=== PATIENT | female | born 1960 | race African-American/Black ===

== ENCOUNTER 2017-07-23 16:10 | Emergency (ER) | payer MEDICARE, OTHER ==
[~2017-07-23] VITALS: Ht 170.2 cm; Wt 77.0 kg
[~2017-07-23 16:10] MED LIST: ALPR-624 PO; ESCI10TA PO; GABA-330 PO; HYDR-3972 PO
[2017-07-23 16:29] VITALS: BP 167/92
[2017-07-23] MEDS ORDERED: acetaminophen 325mg tablet PO ONE (16:55)
[2017-07-23] MEDS ORDERED: ketorolac trometh inj. 60 MG/2 ML VIAL IM ONE (16:55)
[2017-07-23] MEDS ORDERED: IBUP-1984 PO (18:21)
== END 2017-07-23 18:35 | disposition home or self-care (01) ==
LOC: ER 16:12
DX: R51 Headache (principal); I10 Essential (primary) hypertension; G89.29 Other chronic pain
CPT/HCPCS: 36415; 70450; 71045; 85651; 96372; 99285; J1885

== ENCOUNTER 2018-05-24 19:06 | Emergency (ER) | payer MEDICARE, OTHER ==
[~2018-05-24] VITALS: Ht 170.2 cm; Wt 74.0 kg
[2018-05-24 19:23] VITALS: BP 171/64
[2018-05-24] MEDS ORDERED: ketorolac tromethamine 15mg/ml inj. IM ONE (22:20)
== END 2018-05-24 23:14 | disposition home or self-care (01) ==
LOC: ER 19:06
DX: S00.83XA Contusion of other part of head, initial encounter (principal); I10 Essential (primary) hypertension; G89.29 Other chronic pain; R42 Dizziness and giddiness; R11.0 Nausea; V48.6XXA Car passenger injured in noncollision transport accident in traffic accident, initial encounter; Y93.89 Activity, other specified; Y92.410 Unspecified street and highway as the place of occurrence of the external cause; Y99.8 Other external cause status
CPT/HCPCS: 70450; 96372; 99284; J1885

== ENCOUNTER 2018-05-28 14:44 | Emergency (ER) | payer MEDICARE, OTHER ==
[~2018-05-28] VITALS: Ht 170.2 cm; Wt 74.5 kg
[2018-05-28] MEDS ORDERED: dexamethasone sod phosphate 10mg/ml inj IV STA (15:11)
[2018-05-28] MEDS ORDERED: ketorolac trometh. 30mg/ml inj. IV ONE (15:15)
[2018-05-28] MEDS ORDERED: normal saline 1000ML IV soln IVB ONE (15:15)
[2018-05-28] MEDS ORDERED: LORazepam 2 mg/ml vial IV ONE (15:15)
[2018-05-28] MEDS ORDERED: proCHLORperazine 10 MG/2 ml inj IV ONE (15:15)
[2018-05-28 16:43] VITALS: BP 150/85
== END 2018-05-28 16:45 | disposition home or self-care (01) ==
LOC: ER 14:44
DX: F07.81 Postconcussional syndrome (principal); R42 Dizziness and giddiness; G43.909 Migraine, unspecified, not intractable, without status migrainosus; I10 Essential (primary) hypertension; G89.29 Other chronic pain; Z98.890 Other specified postprocedural states; Z79.899 Other long term (current) drug therapy
CPT/HCPCS: 96361; 96374; 96375; 99284; J0780; J1100; J1885; J2060; J7030

== ENCOUNTER 2018-06-20 13:15 | Emergency (ER) | payer MEDICARE, OTHER ==
[~2018-06-20] VITALS: Ht 170.2 cm; Wt 75.0 kg
[2018-06-20] MEDS ORDERED: proCHLORperazine 10 MG/2 ml inj IM ONE (18:10)
[2018-06-20 19:26] VITALS: BP 144/84
== END 2018-06-20 19:27 | disposition home or self-care (01) ==
LOC: ER 13:16
DX: G43.909 Migraine, unspecified, not intractable, without status migrainosus (principal); I10 Essential (primary) hypertension; G89.29 Other chronic pain; Z79.899 Other long term (current) drug therapy
CPT/HCPCS: 96372; 99283; J0780

== ENCOUNTER 2019-01-27 19:23 | Emergency (ER) | payer MEDICARE, OTHER ==
[~2019-01-27] VITALS: Ht 170.2 cm; Wt 75.0 kg
[2019-01-27] MEDS ORDERED: ondansetron/PF 4mg/2ml inj IV ONE (20:30)
[2019-01-27] MEDS ORDERED: normal saline 1000ML IV soln IVB ONE (20:30)
[2019-01-27] MEDS ORDERED: morphine 4 MG/ML inj SYRINge IV PRN (20:30)
[2019-01-27 20:35] LABS: URINE HCG NEGATIVE (NEG)
[2019-01-27 20:37] LABS: CLARITY,URINE CLEAR (Clear); COLOR,URINE YELLOW (Yellow); GLUCOSE, URINE NEGATIVE (Neg); KETONES,URINE NEGATIVE (Neg); LEUKOCYTE ESTERASE ,URINE NEGATIVE (Neg); NITRITES, URINE NEGATIVE (Neg); OCCULT BLOOD,URINE NEGATIVE (Neg); PROTEIN,URINE TRACE mg/dl (Neg); UROBILINOGEN,URINE 0.2 E.U/dL (0.2-1.0)
[2019-01-27 20:42] LABS: UA COLLECTION TYPE CLN CATCH MIDSTREAM
[2019-01-27 20:42] LABS: EOSINOPHILS # (AUTO) 0.1 X10'3 (0-0.9); EOSINOPHILS % (AUTO) 1.1 % (0-6); MEAN CORPUSCULAR HEMOGLOBIN 30.4 PG (27.0-31.0); MEAN CORPUSCULAR HGB CONC 33.5 g/dL (33.0-36.5); MEAN CORPUSCULAR VOLUME 90.7 FL (78-98); MONOCYTES # (AUTO) 0.3 X10'3 (0-0.9); WHITE BLOOD COUNT 8.5 X10'3 (4.5-11.0)
[2019-01-27 20:43] LABS: BACTERIA,URINE FEW /HPF (Neg); RBC,URINE NONE SEEN /HPF (0-2); SQUAMOUS EPITHELIAL CELL,UR MODERATE /LPF (FEW); WBC,URINE 0-4 /HPF (0-4)
[2019-01-27 20:43] LABS: BASOPHILS % (AUTO) 0.2 % (0-1); HEMOGLOBIN 15.7 g/dl (12.0-16.0); LYMPHOCYTES # (AUTO) 0.7 X10'3 (1.1-4.8); LYMPHOCYTES % (AUTO) 8.4 % (21-51); MONOCYTES % (AUTO) 3.2 % (2-12); NEUTROPHILS # (AUTO) 7.4 X10'3 (1.8-7.7); NEUTROPHILS % (AUTO) 87.1 % (42-75); RED BLOOD COUNT 5.18 X10'6 (4.20-5.60); RED CELL DISTRIBUTION WIDTH 14.1 % (11.5-14.5)
[2019-01-27 20:54] LABS: ALANINE AMINOTRANSFERASE 31 U/L (12-78); ALBUMIN 4.2 G/DL (3.4-5.0); ALBUMIN/GLOBULIN RATIO 1.1 (1.1-1.5); ALKALINE PHOSPHATASE 91 IU/L (46-116); ANION GAP 11 (8-16); ASPARTATE AMINO TRANSFERASE 22 U/L (10-37); BILIRUBIN,TOTAL 0.5 MG/DL (0.1-1.0); BLOOD UREA NITROGEN 12 MG/DL (7-18); BUN/CREATININE RATIO 11.7 (6.6-38.0); CALCIUM 9.6 MG/DL (8.5-10.1); CHLORIDE 104 MMOL/L (99-107); CREATININE 1.03 MG/DL (0.40-0.90); GLUCOSE 144 MG/DL (70-104); LIPASE 219 U/L (73-393); SODIUM 143 MMOL/L (135-145); TOTAL CARBON DIOXIDE 28.3 MMOL/L (24-32); TOTAL PROTEIN 8.1 G/DL (6.4-8.2); eGFR 66 ML/MIN
[2019-01-27 20:56] LABS: POTASSIUM 4.3 MMOL/L (3.5-5.1)
[2019-01-27 21:00] VITALS: BP 154/74
[2019-01-27 21:12] LABS: MEAN PLATELET VOLUME 10.8 FL (7.4-10.4); PLATELET COUNT 148 X10'3 (140-440)
[2019-01-27 21:13] LABS: LARGE PLATELETS MODERATE; PLATELET ESTIMATE NORMAL
[2019-01-27] MEDS ORDERED: ONDA4TAB12 PO (21:32)
== END 2019-01-27 22:03 | disposition home or self-care (01) ==
LOC: ER 19:34
DX: K52.9 Noninfective gastroenteritis and colitis, unspecified (principal); G43.909 Migraine, unspecified, not intractable, without status migrainosus; I10 Essential (primary) hypertension; G89.29 Other chronic pain; F41.9 Anxiety disorder, unspecified; Z98.890 Other specified postprocedural states; Z79.899 Other long term (current) drug therapy
CPT/HCPCS: 36415; 74176; 80053; 81001; 81025; 83690; 85025; 85610; 96374; 96375; 99284; J2270; J2405; J7030

== ENCOUNTER 2019-10-10 16:35 | Emergency (ER) | payer MEDICARE, OTHER ==
[~2019-10-10] VITALS: Ht 170.2 cm; Wt 72.0 kg
[~2019-10-10 16:35] MED LIST changes: +ONDA4TAB12 PO
[2019-10-10] MEDS ORDERED: CYCL-1 PO (20:21)
[2019-10-10 20:43] VITALS: BP 155/81
== END 2019-10-10 20:46 | disposition home or self-care (01) ==
LOC: ER 16:36
DX: M54.2 Cervicalgia (principal); M54.6 Pain in thoracic spine; I10 Essential (primary) hypertension; G89.29 Other chronic pain; F41.9 Anxiety disorder, unspecified; Z98.890 Other specified postprocedural states; Z79.899 Other long term (current) drug therapy; V89.2XXA Person injured in unspecified motor-vehicle accident, traffic, initial encounter; Y93.89 Activity, other specified; Y92.410 Unspecified street and highway as the place of occurrence of the external cause; Y99.8 Other external cause status
CPT/HCPCS: 70450; 72125; 72128; 99285

== ENCOUNTER 2020-01-16 15:35 | Emergency (ER) | payer MEDICARE, OTHER ==
[~2020-01-16] VITALS: Ht 170.2 cm; Wt 75.9 kg
[~2020-01-16 15:35] MED LIST changes: +CYCL-1 PO
[2020-01-16 15:47] VITALS: BP 146/73
== END 2020-01-16 17:18 | disposition home or self-care (01) ==
LOC: ER 15:36
DX: F41.0 Panic disorder [episodic paroxysmal anxiety] (principal); G43.909 Migraine, unspecified, not intractable, without status migrainosus; I10 Essential (primary) hypertension; G89.29 Other chronic pain; Z98.890 Other specified postprocedural states; Z79.899 Other long term (current) drug therapy
CPT/HCPCS: 99284

== ENCOUNTER 2020-09-01 20:23 | Emergency (ER) | payer MEDICARE, OTHER ==
[~2020-09-01] VITALS: Ht 170.2 cm; Wt 72.7 kg
[2020-09-01 20:34] VITALS: BP 153/64
[2020-09-01] MEDS ORDERED: BENZ-16 PO (22:26)
[2020-09-01] MEDS ORDERED: AMOX-422 PO (22:26)
[2020-09-01] MEDS ORDERED: ALBU8HFA PO (22:26)
[2020-09-01] MEDS ORDERED: benzonatate 100mg capsule PO ONE (22:30)
[2020-09-01] MEDS ORDERED: amox tr/potassium clavulanate 875/125mg TAB PO ONE (22:30)
[2020-09-01] MEDS ORDERED: guaiFENesin/codeine phos 10ml UD oral syrup PO ONE (22:35)
== END 2020-09-01 23:03 | disposition home or self-care (01) ==
LOC: ER 20:24
DX: J20.9 Acute bronchitis, unspecified (principal); R05 Cough; G43.909 Migraine, unspecified, not intractable, without status migrainosus; I10 Essential (primary) hypertension; G89.29 Other chronic pain; F41.9 Anxiety disorder, unspecified; Z98.890 Other specified postprocedural states; Z79.2 Long term (current) use of antibiotics; Z79.899 Other long term (current) drug therapy
CPT/HCPCS: 99284

== ENCOUNTER → 2020-12-09 | Emergency (ER) | payer MEDICARE, OTHER ==
[~2020-12-09] VITALS: Ht 170.2 cm; Wt 80.9 kg
[~2020-12-09] MED LIST changes: +HYDROcodone/acetaminophen 10/325mg tab PO STA; +cyclobenzaprine 10mg tablet PO ONE; +orphenadrine citrate 60mg/2ml inj. IM ONE
--- NOTE | 2020-12-10 01:29 | NUR ---
met up with patient outside, she is continued pain, laying on decking. Will adm pain med for her
[2020-12-10 02:05] VITALS: BP 196/83
== END | disposition home or self-care (01) ==
LOC: ER 22:44
DX: G89.29 Other chronic pain (principal); M54.2 Cervicalgia; M54.9 Dorsalgia, unspecified; G43.909 Migraine, unspecified, not intractable, without status migrainosus; I10 Essential (primary) hypertension; Z79.899 Other long term (current) drug therapy
CPT/HCPCS: 93005; 96372; 99283; J2360

== ENCOUNTER 2022-01-30 17:26 | Emergency (ER) | payer OTHER, MEDICARE ==
[~2022-01-30] VITALS: Ht 157.5 cm; Wt 77.7 kg
[~2022-01-30 17:26] MED LIST changes: -HYDROcodone/acetaminophen 10/325mg tab PO STA; -cyclobenzaprine 10mg tablet PO ONE; -orphenadrine citrate 60mg/2ml inj. IM ONE
--- NOTE | 2022-01-30 18:47 | NUR ---
DR HAMEED AWARE OF PT. HE STATES NOT TO ORDER A HEAD OR NECK CT YET.
--- NOTE | 2022-01-30 20:06 | NUR ---
[facility]. CASE REPORT NUMBER IS [id number]
[2022-01-30] MEDS ORDERED: cyclobenzaprine 10mg tablet PO ONE (20:50)
[2022-01-30] MEDS ORDERED: ketorolac trometh. 30mg/ml inj. IM ONE (20:50)
[2022-01-30 23:52] VITALS: BP 128/58
== END 2022-01-30 23:54 | disposition home or self-care (01) ==
LOC: ER 17:27
DX: R51.9 Headache, unspecified (principal); M54.2 Cervicalgia; M54.9 Dorsalgia, unspecified; V98.8XXA Other specified transport accidents, initial encounter; Y93.89 Activity, other specified; Y92.89 Other specified places as the place of occurrence of the external cause; Y99.8 Other external cause status; G43.909 Migraine, unspecified, not intractable, without status migrainosus; I10 Essential (primary) hypertension; G89.29 Other chronic pain; F41.9 Anxiety disorder, unspecified; Z79.899 Other long term (current) drug therapy
CPT/HCPCS: 70450; 96372; 99284; J1885; 99283

== ENCOUNTER 2023-03-08 19:16 | Emergency (ER) | payer MEDICARE, OTHER ==
[~2023-03-08] VITALS: Ht 170.2 cm; Wt 76.8 kg
[2023-03-08 19:17] VITALS: TEMP 98.4
[2023-03-08 20:09] LABS: BASOPHILS % (AUTO) 0.4 % (0-1); EOSINOPHILS # (AUTO) 0.1 X10'3 (0-0.9); HEMATOCRIT 38.2 % (35.0-45.0); HEMOGLOBIN 12.8 g/dl (12.0-16.0); LYMPHOCYTES # (AUTO) 1.1 X10'3 (1.1-4.8); LYMPHOCYTES % (AUTO) 24.3 % (21-51); MEAN CORPUSCULAR HEMOGLOBIN 30.4 PG (27.0-31.0); MEAN CORPUSCULAR HGB CONC 33.4 g/dL (33.0-36.5); MEAN CORPUSCULAR VOLUME 91.1 FL (78-98); MEAN PLATELET VOLUME 10.4 FL (7.4-10.4); MONOCYTES # (AUTO) 0.3 X10'3 (0-0.9); MONOCYTES % (AUTO) 6.2 % (2-12); NEUTROPHILS # (AUTO) 3.1 X10'3 (1.8-7.7); NEUTROPHILS % (AUTO) 67.1 % (42-75); PLATELET COUNT 107 X10'3 (140-440); RED CELL DISTRIBUTION WIDTH 13.7 % (11.5-14.5); WHITE BLOOD COUNT 4.7 X10'3 (4.5-11.0)
[2023-03-08 20:22] LABS: ALANINE AMINOTRANSFERASE 37 U/L (12-78); ALBUMIN 3.9 G/DL (3.4-5.0); ALBUMIN/GLOBULIN RATIO 1.1 (1.1-1.5); ALKALINE PHOSPHATASE 85 IU/L (46-116); ANION GAP 7 (8-16); ASPARTATE AMINO TRANSFERASE 26 U/L (10-37); BILIRUBIN,TOTAL 0.3 MG/DL (0.1-1.0); BLOOD UREA NITROGEN 8 MG/DL (7-18); CALCIUM 9.1 MG/DL (8.5-10.1); CHLORIDE 105 MMOL/L (99-107); CREATININE 0.73 MG/DL (0.40-0.90); GLUCOSE 91 MG/DL (70-104); POTASSIUM 3.6 MMOL/L (3.5-5.1); SODIUM 140 MMOL/L (135-145); TOTAL PROTEIN 7.5 G/DL (6.4-8.2); eCRCL 77 ML/MIN; eGFR > 90 ML/MIN
[2023-03-08 20:33] LABS: PRO BRAIN NATRIURETIC PEPTIDE 144 PG/ML (0-125)
[2023-03-08] MEDS ORDERED: ketorolac trometh inj. 60 MG/2 ML VIAL IM ONE (21:20)
[2023-03-08] MEDS ORDERED: diphenhydrAMINE 50 mg/ml inj IM ONE (21:20)
[2023-03-08] MEDS ORDERED: ondansetron/PF 4mg/2ml inj IM ONE (21:20)
[2023-03-08 22:08] VITALS: BP 207/93; PULSE 55; RESP 16; O2SAT 100
== END 2023-03-08 22:35 | disposition home or self-care (01) ==
LOC: ER 19:17
DX: G43.909 Migraine, unspecified, not intractable, without status migrainosus (principal); I10 Essential (primary) hypertension; G89.29 Other chronic pain; F31.9 Bipolar disorder, unspecified; Z79.899 Other long term (current) drug therapy
CPT/HCPCS: 71045; 80053; 83880; 84484; 85025; 93005; 96372; 99285; J1200; J1885; J2405

== ENCOUNTER 2024-12-26 17:37 | Emergency (ER) | payer MEDICARE, OTHER ==
[~2024-12-26] VITALS: Ht 170.2 cm; Wt 74.0 kg
[~2024-12-26 17:37] MED LIST changes: +ONDA-243 PO; -ONDA4TAB12 PO
[2024-12-26 17:44] VITALS: TEMP 97.8
[2024-12-26 18:33] LABS: MEAN PLATELET VOLUME 10.5 FL (7.4-10.4); RED CELL DISTRIBUTION WIDTH 13.8 % (11.5-14.5)
[2024-12-26 18:41] LABS: CREATININE 2.83 MG/DL (0.40-0.90); TOTAL CARBON DIOXIDE 22.2 MMOL/L (24-32); eCRCL 19 ML/MIN; eGFR 20 ML/MIN
--- NOTE | 2024-12-26 20:06 | RADIOLOGY REPORT ---
CHEST RADIOGRAPH Indication: cough Technique: Single frontal view of the chest was obtained Comparison: DI CHEST,SINGLE VIEW on DOS: 03/08/23, CTA CHEST on DOS: 05/19/22, CHEST,SINGLE VIEW on DOS : 05/19/22 FINDINGS: Lines and Tubes: None Lungs: No focal consolidation. Pleura: No effusion. No pneumothorax. Cardiomediastinal contours: Unremarkable Bones: No acute osseous abnormality. IMPRESSION: No acute cardiopulmonary disease.
--- NOTE | 2024-12-26 20:33 | ELECTROCARDIOGRAPH REPORT ---
[facility] Test Date: 2024-12-26 Test Time: 20:32:27 Pat Name: TREVA PECK Department: [facility]- Patient ID: [id number] Room: Gender: F Corporate Investigator: : 1960 Requested By: CLEMENTE GORDILLO Order Number: [id number] Reading MD: Dr. Leonides Kent Measurements Intervals [place] Rate: 54 P: 75 WV: 170 QRS: 22 QRSD: 96 T: 52 QT: 423 QTc: 401 Interpretive Statements Sinus bradycardia Probable left atrial enlargement RSR' in V1 or V2, probably normal variant Electronically Signed On 12-27-2024 12:04:[address] Leonides Kent Please click the below link to view image of tracing.
[2024-12-26] MEDS: normal saline 1000ml 1,000 ML IV ONE (21:44)
--- NOTE | 2024-12-27 01:22 | Physician Documentation ---
History of Present Illness ~ Chief Complaint: Hypotension Stated Complaint: DIZZINESS Time Seen by MD: 20:14 OK to notify your PCP?: Yes Primary Medical Doctor: Dr. Swain Mode of Arrival: POV HPI 64 year old female reports that she has been feeling weak and dizzy since yesterday. She checked her blood pressure and noted it to be low. Normally she has hypertension and takes antihypertensives and elected not to take them today. She denies fever, cough, N/V/D, cough, chest pain, shortness of breath. Medication Reconciliation Allergies: Coded Allergies: No Known Allergies (Unverified , 03/08/23) Scheduled Alprazolam* (Xanax*), 1 MG PO TID, (Reported) Cyclobenzaprine* (Cyclobenzaprine*), 1 TAB PO Q8H Cyclobenzaprine* (Cyclobenzaprine*), 1 TAB PO HS Escitalopram Oxalate (Lexapro), 1 TABLET PO DAILY, (Reported) Gabapentin* (Gabapentin*), 300 MG PO HS, (Reported) Scheduled PRN Hydrocodone Bit/Acetaminophen (Hydrocodon-Acetaminophn 10-325 tablet), 1 TAB PO Q6H PRN for severe pain, (Reported) ONDANSETRON ODT 4mg tablet (Ondansetron Odt), 1 TABLET PO Q6H PRN for nausea/vomiting Past Medical History Past Medical History: Headache, Migraine, Hypertension, Bowel Obstruction, Chronic Pain, Anxiety Past Surgical History: abdominal surgery Patient History: Patient reports no known family medical history. Smoking Status: Never smoker Alcohol Use: None Drug Use: none Lives In: Home Occupation: employed Review of Systems All Other Systems at this time: Reviewed and Negative Physical Exam Vital Signs: RN Vital Signs have been reviewed: Yes, Temperature: 97.8, Heart Rate: 71, Respiratory Rate: 16, BP: 145/33, Pulse Oximetry: 98, Weight: 74.000 Oxygen Flow Rate: 0 Physical Exam HEENT: PERRL, moist oral mucosa, EOMI Pulmonary: No respiratory distress CTAB Cardiac: RRR, no murmur, rub or gallop MSK: no deformity Skin: w/d/i, no rash Neuro: alert, nonfocal Psych: normal affect Progress Results/Orders Results/Orders Orders - CLEMENTE GORDILLO MD General Nursing Order (12/27/24 00:26) Completed Orders - CLEMENTE GORDILLO MD Electrocardiogram (12/26/24 ) Normal Saline 1000ml (0.9% Sodium Chlori (12/26/24 20:55) Medications Received in ER Medications (Trade) Dose Ordered Sig/Jenna Route PRN Reason Start Time Stop Time Status Last Admin Dose Admin Sodium Chloride 1,000 ml @ 1,000 mls/hr ONCE ONCE IV 12/26/24 20:55 12/26/24 21:54 DC 12/26/24 21:44 1,000 MLS/HR Vital Signs 12/26/24 12/26/24 12/26/24 12/26/24 17:44 20:16 20:25 21:51 Temp 97.8 Pulse 70 60 58 Resp 16 16 16 16 B/P (MAP) 92/46 117/50 (72) 120/68 (85) Pulse Ox 98 98 98 O2 Flow Rate 0 0 12/26/24 23:39 Pulse 71 Resp 16 B/P (MAP) 145/33 (70) Pulse Ox 98 Laboratory Tests Test 12/26/24 18:23 White Blood Count 8.6 Red Blood Count 4.22 Hemoglobin 13.1 Hematocrit 39.2 Mean Corpuscular Volume 92.9 Mean Corpuscular Hemoglobin 31.0 Mean Corpuscular Hemoglobin Concent 33.4 Red Cell Distribution Width 13.8 Platelet Count 145 Mean Platelet Volume 10.5 H Neutrophils (%) (Auto) 82.0 H Lymphocytes (%) (Auto) 12.6 L Monocytes (%) (Auto) 4.2 Eosinophils (%) (Auto) 0.9 Basophils (%) (Auto) 0.3 Neutrophils # (Auto) 7.1 Lymphocytes # (Auto) 1.1 Monocytes # (Auto) 0.4 Eosinophils # (Auto) 0.1 Basophils # (Auto) 0.0 CBC Comment Sodium Level 131 L Potassium Level 4.8 Chloride Level 100 Carbon Dioxide Level 22.2 L Anion Gap 9 Blood Urea Nitrogen 46 H Creatinine 2.83 H Estimated GFR/1.73 m2 20 BUN/Creatinine Ratio 16.3 Glucose Level 120 H Calcium Level 8.7 Albumin 4.0 Lipase 80 H Chemistry Comments Medical Decision Making Findings 64 year old female with hypotension and weakness. Workup demonstrated only p rerenal azotemia. IVF bolus provided and her pressure improved as did her hypotension. She passed a road test. We will discharge her with instructions to maintain adequate hydration on these hot 100+ degree days. Return precautions discussed. Differential Dx:Considerations: Include: anemia, dehydration, electrolyte imbalance, encephalopathy, hypoglycemia, hypovolemia, myocardial infarction, renal failure, vertigo central, vertigo peripheral, vestibular neuronitis Departure Disposition: HOME / SELF CARE / HOMELESS Impression: Primary Impression: Acute prerenal azotemia Additional Impression: Dehydration Condition: Stable Discharge Instructions: Orthostatic Hypotension Referrals: NO PRIMARY CARE PROVIDER (PCP) Education Educated: Patient, Other Educated regarding: diagnosis, treatment, prognosis, need for follow up Signature Scribe Signature: . Attestation: . CLEMENTE GORDILLO MD Dec 27, 2024 01:22
[2024-12-27 02:08] VITALS: BP 110/68; PULSE 86; RESP 16; O2SAT 99
== END 2024-12-27 02:10 | disposition home or self-care (01) ==
LOC: ER 17:37
DX: R79.89 Other specified abnormal findings of blood chemistry (principal); E86.0 Dehydration; I10 Essential (primary) hypertension
CPT/HCPCS: 71045; 80048; 83690; 85025; 93005; 96360; 99285; J7030

== ENCOUNTER 2025-02-10 15:05 | Outpatient (CLI) | payer MEDICARE, OTHER ==
--- NOTE | 2025-02-12 00:44 | CONSULTATION ---
DATE OF CONSULTATION: 02/10/2025 DICTATING PHYSICIAN: Marietta Valdez M.S., [facility] MODIFIED BARIUM SWALLOW STUDY REPORT REFERRING PHYSICIAN: Sivakumar Swain MD HISTORY OF PRESENT ILLNESS: The patient is a 64-year-old female and consents for this evaluation. In history obtained from the patient and medical records, the patient reports having a chronic cough. She notes that as soon as she goes to bed or as soon as she lies down that she begins to cough and that she has extra saliva at night. She notes that her throat has been more itchy lately and she has to drink a lot of water. She had originally thought that her cough was due to her lisinopril and so she had stopped taking it, but she does continue to have this chronic cough. The patient reports that this cough has been interrupting her sleep as she cannot sleep at her normal time, but typically falls asleep now at 5:00 a.m. once the coughing stops. CURRENT DIET: In terms of caffeine, the patient has tea on a daily basis and she has one glass of soda per day. She does not utilize tobacco products or drink alcohol. She consumes chocolate a couple of times a month. She very rarely has dairy, perhaps once a month. A typical breakfast consists of her tea with viri or just viri and water. She snacks in the morning on peanuts. A typical lunch may be chicken with tomatoes. She does not snack in the afternoon and then a typical dinner may be [place]ican potatoes, beans, and squash. MEDICATIONS: Pantoprazole EC 40 mg one tablet twice daily orally, Crestor 10 mg one tablet once daily orally, losartan potassium with HCTZ 100/12.5 mg once daily orally, Colace 100 mg once daily orally, aspirin twice daily orally. PARAMETERS: The patient is seated in a lateral 90-degree view and administered the usual protocol of thin and nectar thick liquids, puree and solid consistencies, as well as self-regulated boluses of thin liquids from a cup. RESULTS: The patient was easily able to transfer the bolus from the anterior to the posterior oral cavity. There did not appear to be any difficulty with strength or range of motion of the tongue and there was no oral residue noted after the tail of the bolus passed. In the pharyngeal stage of the swallow, tongue base retraction was within functional limits. Anterior movement of the posterior pharyngeal wall was observed. Swallow initiation was within functional limits. Elevation of the hyothyroid complex was accomplished with full range of motion. There was no pharyngeal residue noted after the tail of the bolus passed and PES opening was within functional limits. At no time was the patient noted to penetrate or aspirate on any of the bolus sizes or consistencies. ANTERIOR, POSTERIOR VIEW: In the AP plane, the bolus split symmetrically between the piriform sinuses and there was proximal movement of the bolus noted to the level of the mid sternum. 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 DIAGNOSES: R13.14, dysphagia, pharyngoesophageal phase, R05.3, chronic cough. PATIENT EDUCATION: Immediately following modified barium swallow study, the patient was able to view the results. The normal anatomy of the swallowing mechanism was revealed. She was able to see the proximal movement of the various boluses. She was instructed in laryngopharyngeal reflux disease precautions and a written handout was provided to her. RECOMMENDATIONS: It is recommended that the patient follow the aforementioned laryngopharyngeal reflux disease precautions in the form of dietary modifications. LONG-TERM GOALS: The patient will maintain adequate hydration/nutrition with optimum safety and efficiency of swallow function on p.o. intake without overt signs and symptoms of aspiration for the highest possible diet level. FUNCTIONAL ORAL INTAKE: The FOIS was administered to establish and document a change in the functional eating activities of this patient over time. This is a 7-point scale with 1 indicating no oral intake and totally tube dependent and 7 indicating total oral intake with no restrictions. This patient received a 6, which indicates she has a total oral diet with multiple consistencies without special preparation, but with specific food limitations and precautions. G-CODE: [id number]. Thank you very much for asking me to participate in the care of this kind patient. Should you have any questions regarding this evaluation or recommendations, please do not hesitate to contact me at [phone]. During this examination, 3.09 minutes of fluoroscopy time and 10.12 CAK mGy were utilized. Marietta Valdez M.S., [facility] TID: [id number] RECEIPT: [id number] [facility]
== END 2025-02-10 23:59 | disposition home or self-care (01) ==
LOC: RAD 15:05
PROVIDERS: ATTEND Family Medicine
DX: R13.14 Dysphagia, pharyngoesophageal phase (principal); R05.3 Chronic cough
CPT/HCPCS: 74230